=== PATIENT | female | born 1985 | race Caucasian/White ===

== ENCOUNTER 2017-08-13 19:42 | Emergency (ER) | payer MEDICAID ==
[2017-08-13 20:31] VITALS: TEMP 98.9
--- NOTE | 2017-08-13 22:59 | ED ---
General Adult HPI - General Chief complaint: Extremity Injury, Lower Stated complaint: calf pain Time Seen by Provider: 08/13/17 22:14 Source: patient, RN notes reviewed Mode of arrival: ambulatory Limitations: no limitations - History of Present Illness Initial comments: 32-year-old female to the emergency department for a chief complaint of left calf pain times one week. Patient states she woke up with what felt like a charley horse. Patient states it continued for the remainder of the week. However today she was walking on the stairs and felt a pop in the back of her leg. Patient states she believes it is a "charley horse" but is unsure if it could be something else like a blood clot. Patient states she is worried about a blood count because she is a smoker on control. Patient denies shortness of breath or chest pain. Patient denies pain behind the knee. Patient denies any pain in the foot ankle or zamudio. Patient has not tried Motrin for pain or heating the affected area. Patient states going up on her toes makes it hurt worse. Patient has no other complaints at this time including abdominal pain, nausea or vomiting, headache, or visual changes. - Related Data Home Medications Medication Instructions Recorded Confirmed Pnv,Calcium 72/Iron/Folic Acid 02/03/15 02/03/15 [ Plus Tablet] Previous Rx's Medication Instructions Recorded Acetaminophen-Codeine 300-30mg 2 each PO Q4HR PRN #30 tab 02/05/15 [Tylenol w/codeine #3] Ibuprofen [Motrin] 600 mg PO Q6HR PRN #30 tab 02/05/15 Allergies Allergy/AdvReac Type Severity Reaction Status Date / Time No Known Allergies Allergy Verified 08/13/17 20:31 Review of Systems ROS Statement: Those systems with pertinent positive or pertinent negative responses have been documented in the HPI. ROS Other: All systems not noted in ROS Statement are negative. Past Medical History Past Medical History: No Reported History Additional Past Medical History / Comment(s): OB history: First was a spontaneous . This is her second and she has had care with me since 11 weeks. B+, abs neg, Rub Imm, RPR NR, Hep B neg, normal anatomy US and normal 1hr GTT. GBS neg. History of Any Multi-Drug Resistant Organisms: None Reported Past Surgical History: Adenoidectomy Additional Past Surgical History / Comment(s): Myringotomy with tube placement Past Anesthesia/Blood Transfusion Reactions: No Reported Reaction Past Psychological History: No Psychological Hx Reported Smoking Status: Current every day smoker Past Alcohol Use History: None Reported Past Drug Use History: None Reported - Past Family History Mother Family Medical History: Asthma General Exam Limitations: no limitations General appearance: alert, in no apparent distress Respiratory exam: Present: normal lung sounds bilaterally. Absent: respiratory distress, wheezes, rales, rhonchi, stridor Cardiovascular Exam: Present: regular rate, normal rhythm, normal heart sounds. Absent: systolic murmur, diastolic murmur, rubs, gallop, clicks Extremities exam: Present: full ROM (Full range of motion of the left knee and left ankle and foot. Patient has pain with lifting her heel off the ground on the left lower extremity.), tenderness (Tenderness to the gastrocnemius area of the left lower extremity.), normal capillary refill (Cap refill less than 2 seconds and pedal pulse 2+ in the left lower extremity), calf tenderness (No swelling, redness, increased warmth in the left lower external he.), other ( Sensation intact in the left lower extremity.). Absent: joint swelling (No swelling of the left ankle or left knee.) Course Vital Signs 08/13/17 20:27 Temperature 98.9 F Pulse Rate 79 Respiratory 16 Rate Blood Pressure 110/74 O2 Sat by Pulse 99 Oximetry Medical Decision Making - Medical Decision Making 32-year-old female presents to the emergency department for a chief complaint of left lower extremities pain times one week. Patient states she woke up with the pain about a week ago and it worsened today when she stepped and felt a snap in the back of her calf. Patient believes this is a "charley horse." however, she is concerned for blood clots as she is a smoker and takes control. Patient denies shortness of breath or chest pain. On exam patient has some tenderness to the left posterior calf. There is no swelling, redness, or increased warmth of the left calf. Patient has full range motion of the left knee and ankle. Patient has difficulty lifting her left heel off the ground due to pain. Ultrasound of the left lower extremity was ordered which was negative for DVT. Patient likely is experiencing a muscle spasm. Patient was educated to use heat on the muscle to relax it. She was educated to take Motrin or Tylenol for pain and to gently stretch the calf. Patient denies any chance of . She is to follow-up with her primary care provider in one to 2 days. She is to return to the emergency Department if she has any worsening symptoms. Disposition Clinical Impression: Muscle spasm of left calf Disposition: HOME SELF-CARE Condition: Good Instructions: Muscle Spasm (ED) Additional Instructions: Please take Motrin or Tylenol for pain relief. Please apply heat to the area as well as gently stretch the calf. Return to the emergency department if you have any worsening symptoms. Otherwise follow-up with primary care in 1-2 days. Is patient prescribed a controlled substance at d/c from ED?: No Referrals: Qasim Philippe DO [Primary Care Provider] - 1-2 days Time of Disposition: 22:58
--- NOTE | 2017-08-13 23:17 | US ---
EXAMINATION TYPE: US venous doppler duplex LE LT DATE OF EXAM: 08/13/2017 10:44 PM COMPARISON: NONE CLINICAL HISTORY: Pain. Left calf cramping SIDE PERFORMED: Left TECHNIQUE: The lower extremity deep venous system is examined utilizing real time linear array sonog efraín with graded compression, doppler sonography and color-flow sonography. VESSELS IMAGED: External Iliac Vein (EIV) Common Femoral Vein Deep Femoral Vein Greater Saphenous Vein * Femoral Vein Popliteal Vein Small Saphenous Vein * Proximal Calf Veins (* superficial vessels) Left Leg: Appears negative for DVT IMPRESSION: Negative exam. No evidence of deep venous thrombosis in the left leg.
[2017-08-13 23:28] VITALS: BP 123/66; PULSE 86; RESP 18
== END 2017-08-13 23:28 | disposition home or self-care (01) ==
LOC: EC 19:42
DX: M62.838 Other muscle spasm (principal); F17.200 Nicotine dependence, unspecified, uncomplicated; Z79.3 Long term (current) use of hormonal contraceptives
CPT/HCPCS: 99283

== ENCOUNTER 2018-02-08 06:56 | Emergency (ER) | payer MEDICAID ==
[2018-02-08 07:54] LABS: Basophils % (A) 0 %; Eosinophils # (A) 0.3 k/uL (0-0.7); Eosinophils % (A) 5 %; HCT 44.8 % (34.0-46.0); HGB 14.8 gm/dL (11.4-16.0); Lymphocytes # (A) 1.5 k/uL (1.0-4.8); Lymphocytes % (A) 21 %; MCH 27.7 pg (25.0-35.0); MCV 83.9 fL (80.0-100.0); Mean Platelet Volume 7.6; Monocytes # (A) 0.4 k/uL (0-1.0); Monocytes % (A) 6 %; Neutrophils # (A) 4.7 k/uL (1.3-7.7); Neutrophils % (A) 67 %; Platelet Count 241 k/uL (150-450); RBC 5.34 m/uL (3.80-5.40); RDW 13.5 % (11.5-15.5)
[2018-02-08 08:01] LABS: ALT 21 U/L (9-52); AST 18 U/L (14-36); Albumin 4.4 g/dL (3.5-5.0); Alkaline Phosphatase 46 U/L (38-126); Anion Gap 9 mmol/L; Blood Urea Nitrogen 13 mg/dL (7-17); Calcium 9.8 mg/dL (8.4-10.2); Carbon Dioxide 20 mmol/L (22-30); Chloride 111 mmol/L (98-107); Glucose 90 mg/dL (74-99); Potassium 4.3 mmol/L (3.5-5.1); Sodium 140 mmol/L (137-145); Total Bilirubin 0.5 mg/dL (0.2-1.3); Total Protein 7.9 g/dL (6.3-8.2)
--- NOTE | 2018-02-08 08:01 | XR ---
EXAMINATION TYPE: XR chest 2V DATE OF EXAM: 02/08/2018 COMPARISON: NONE HISTORY: Chest pain TECHNIQUE: Frontal and lateral views of the chest are obtained. FINDINGS: There is no focal air space opacity. No evidence for pneumothorax. No pleural effusion. The cardiac silhouette size is within normal limits. The osseous structures are grossly intact. IMPRESSION: 1. No acute cardiopulmonary process.
[2018-02-08 08:04] LABS: Partial Thromboplastin Time 23.8 sec (22.0-30.0); Prothrombin Time 9.8 sec (9.0-12.0)
--- NOTE | 2018-02-08 08:09 | ED ---
SOB HPI - General Chief Complaint: Shortness of Breath Stated Complaint: high heart rate and blood pressure Time Seen by Provider: 02/08/18 07:30 Source: patient, RN notes reviewed Mode of arrival: ambulatory Limitations: no limitations - History of Present Illness Initial Comments: This is a 32-year-old female with what she believes to be a history of hypothyroidism when she was 17 years old who states she had the onset this morning of elevated heart rate. He states the heart rate without between 1949 the blood pressure 129/58. She has some shortness of breath and palpitations. It started about 5:00 last until around 7 AM. No chest pain with it no fevers chills nausea vomiting sweats she states she feels back to normal at this time she's never had this happen before she denies any other symptoms or recent illnesses. Her last menstrual period was January 17 through January 24 she does not believe she is . There is a family history of cardiac disease with no personal history MD Complaint: shortness of breath - Related Data Home Medications Medication Instructions Recorded Confirmed Aspirin/Acetaminophen/Caffeine 2 tab PO DAILY PRN 02/08/18 02/08/18 [Excedrin Migraine Caplet] Confianza 1 tab PO DAILY 02/08/18 02/08/18 Etonogestrel/Ethinyl Estradiol 1 ring VAGINAL Q28D 02/08/18 02/08/18 [Nuvaring Vaginal Ring] Allergies Allergy/AdvReac Type Severity Reaction Status Date / Time No Known Allergies Allergy Verified 02/08/18 08:22 Review of Systems ROS Statement: Those systems with pertinent positive or pertinent negative responses have been documented in the HPI. ROS Other: All systems not noted in ROS Statement are negative. Past Medical History Past Medical History: No Reported History Additional Past Medical History / Comment(s): OB history: First was a spontaneous . This is her second and she has had care with me since 11 weeks. B+, abs neg, Rub Imm, RPR NR, Hep B neg, normal anatomy US and normal 1hr GTT. GBS neg. History of Any Multi-Drug Resistant Organisms: None Reported Past Surgical History: Adenoidectomy, Section Additional Past Surgical History / Comment(s): Myringotomy with tube placement, c-sect, ear tubes- now removed Past Anesthesia/Blood Transfusion Reactions: No Reported Reaction Past Psychological History: No Psychological Hx Reported Smoking Status: Current every day smoker Past Alcohol Use History: Rare Past Drug Use History: Marijuana - Past Family History Mother Family Medical History: Asthma General Exam - General Exam Comments Initial Comments: This is a well-developed well-nourished awake alert oriented 3 female Limitations: no limitations General appearance: alert, in no apparent distress Head exam: Present: atraumatic, normocephalic, normal inspection Eye exam: Present: normal appearance, PERRL, EOMI. Absent: scleral icterus, conjunctival injection, periorbital swelling ENT exam: Present: normal exam, mucous membranes moist Neck exam: Present: normal inspection, full ROM, other (No stridor JVD or bruits ). Absent: tenderness, meningismus, lymphadenopathy, thyromegaly Respiratory exam: Present: normal lung sounds bilaterally. Absent: respiratory distress, wheezes, rales, rhonchi, stridor Cardiovascular Exam: Present: regular rate, normal rhythm, normal heart sounds. Absent: systolic murmur, diastolic murmur, rubs, gallop, clicks GI/Abdominal exam: Present: soft, normal bowel sounds. Absent: distended, tenderness, guarding, rebound, rigid Extremities exam: Present: normal inspection, full ROM, normal capillary refill. Absent: tenderness, pedal edema, joint swelling, calf tenderness Back exam: Present: normal inspection Neurological exam: Present: alert, oriented X3, CN II-XII intact Psychiatric exam: Present: normal affect, normal mood Skin exam: Present: warm, dry, intact, normal color. Absent: rash Course Vital Signs 02/08/18 02/08/18 02/08/18 06:58 07:44 08:02 Temperature 98.0 F Pulse Rate 94 85 Respiratory 16 Rate Blood Pressure 113/78 96/56 O2 Sat by Pulse 100 2 L 98 Oximetry Medical Decision Making - Medical Decision Making Patient is feeling much improved she will be discharged she is follow-up with her doctor I did recommend a Holter monitor. - Lab Data Result diagrams: 02/08/18 07:40 02/08/18 07:40 Lab Results 02/08/18 02/08/18 02/08/18 Range/Units 07:40 07:40 07:40 WBC 7.0 (3.8-10.6) k/uL RBC 5.34 (3.80-5.40) m/uL Hgb 14.8 (11.4-16.0) gm/dL Hct 44.8 (34.0-46.0) % MCV 83.9 (80.0-100.0) fL MCH 27.7 (25.0-35.0) pg MCHC 33.0 (31.0-37.0) g/dL RDW 13.5 (11.5-15.5) % Plt Count 241 (150-450) k/uL Neutrophils % 67 % Lymphocytes % 21 % Monocytes % 6 % Eosinophils % 5 % Basophils % 0 % Neutrophils # 4.7 (1.3-7.7) k/uL Lymphocytes # 1.5 (1.0-4.8) k/uL Monocytes # 0.4 (0-1.0) k/uL Eosinophils # 0.3 (0-0.7) k/uL Basophils # 0.0 (0-0.2) k/uL PT (9.0-12.0) sec INR (<1.2) APTT (22.0-30.0) sec D-Dimer (<0.60) mg/L FEU Sodium 140 (137-145) mmol/L Potassium 4.3 (3.5-5.1) mmol/L Chloride 111 H (98-107) mmol/L Carbon Dioxide 20 L (22-30) mmol/L Anion Gap 9 mmol/L BUN 13 (7-17) mg/dL Creatinine 0.75 (0.52-1.04) mg/dL Est GFR (CKD-EPI)AfAm >90 (>60 ml/min/1.73 sqM) Est GFR (CKD-EPI)NonAf >90 (>60 ml/min/1.73 sqM) Glucose 90 (74-99) mg/dL Calcium 9.8 (8.4-10.2) mg/dL Magnesium (1.6-2.3) mg/dL Total Bilirubin 0.5 (0.2-1.3) mg/dL AST 18 (14-36) U/L ALT 21 (9-52) U/L Alkaline Phosphatase 46 (38-126) U/L Total Creatine Kinase 77 (30-135) U/L CK-MB (CK-2) 0.7 (0.0-2.4) ng/mL CK-MB (CK-2) Rel Index 0.9 Troponin I 0.030 (0.000-0.034) ng/mL Total Protein 7.9 (6.3-8.2) g/dL Albumin 4.4 (3.5-5.0) g/dL TSH (0.465-4.680) mIU/L 02/08/18 02/08/18 02/08/18 Range/Units 07:40 07:40 07:40 WBC (3.8-10.6) k/uL RBC (3.80-5.40) m/uL Hgb (11.4-16.0) gm/dL Hct (34.0-46.0) % MCV (80.0-100.0) fL MCH (25.0-35.0) pg MCHC (31.0-37.0) g/dL RDW (11.5-15.5) % Plt Count (150-450) k/uL Neutrophils % % Lymphocytes % % Monocytes % % Eosinophils % % Basophils % % Neutrophils # (1.3-7.7) k/uL Lymphocytes # (1.0-4.8) k/uL Monocytes # (0-1.0) k/uL Eosinophils # (0-0.7) k/uL Basophils # (0-0.2) k/uL PT 9.8 (9.0-12.0) sec INR 1.0 (<1.2) APTT 23.8 (22.0-30.0) sec D-Dimer 0.18 (<0.60) mg/L FEU Sodium (137-145) mmol/L Potassium (3.5-5.1) mmol/L Chloride (98-107) mmol/L Carbon Dioxide (22-30) mmol/L Anion Gap mmol/L BUN (7-17) mg/dL Creatinine (0.52-1.04) mg/dL Est GFR (CKD-EPI)AfAm (>60 ml/min/1.73 sqM) Est GFR (CKD-EPI)NonAf (>60 ml/min/1.73 sqM) Glucose (74-99) mg/dL Calcium (8.4-10.2) mg/dL Magnesium 2.2 (1.6-2.3) mg/dL Total Bilirubin (0.2-1.3) mg/dL AST (14-36) U/L ALT (9-52) U/L Alkaline Phosphatase (38-126) U/L Total Creatine Kinase (30-135) U/L CK-MB (CK-2) (0.0-2.4) ng/mL CK-MB (CK-2) Rel Index Troponin I (0.000-0.034) ng/mL Total Protein (6.3-8.2) g/dL Albumin (3.5-5.0) g/dL TSH 3.900 (0.465-4.680) mIU/L - Radiology Data Radiology results: report reviewed, image reviewed Disposition Clinical Impression: Palpitations, Tachycardia Disposition: HOME SELF-CARE Condition: Good Instructions: Heart Palpitations (DC), Tachycardia (ED) Is patient prescribed a controlled substance at d/c from ED?: No Referrals: Qasim Philippe DO [Primary Care Provider] - 1-2 days
[2018-02-08 08:26] LABS: Creatine Kinase MB 0.7 ng/mL (0.0-2.4); Troponin I 0.03 ng/mL (0.000-0.034)
[2018-02-08 08:27] LABS: Magnesium 2.2 mg/dL (1.6-2.3)
[2018-02-08] MEDS ORDERED: SODIUM CHLORIDE 0.9% 1,000 ML IV ONE (10:25)
[2018-02-08 12:41] VITALS: BP 111/61; PULSE 96; RESP 18; TEMP 98
== END 2018-02-08 12:40 | disposition home or self-care (01) ==
LOC: EC 06:56
DX: R00.2 Palpitations (principal); R00.0 Tachycardia, unspecified; R06.02 Shortness of breath; F17.200 Nicotine dependence, unspecified, uncomplicated; Z79.3 Long term (current) use of hormonal contraceptives; Z79.899 Other long term (current) drug therapy; Z82.49 Family history of ischemic heart disease and other diseases of the circulatory system
CPT/HCPCS: 36415; 71046; 80053; 82550; 82553; 83735; 84443; 84484; 85025; 85379; 85610; 85730; 93005; 96360; 99285

== ENCOUNTER → 2019-10-09 | Outpatient (CLI) | payer MEDICAID ==
--- NOTE | 2019-10-09 15:18 | US ---
EXAMINATION TYPE: US mass soft tissue chest/back DATE OF EXAM: 10/09/2019 COMPARISON: NONE CLINICAL HISTORY: R22.22 localized swelling/mass on trunk. Lump on left upper back. Isoechoic area seen .4 x .3 x .3 cm., Peripheral echogenic rim is noted Scanning performed in the site of patient's clinical abnormality. IMPRESSION: Small focus shows a nonaggressive appearance and is of questionable clinical significanc e. Follow-up as indicated, consider clinical management
== END | disposition home or self-care (01) ==
LOC: RADUSWWP 14:50
PROVIDERS: ATTEND Physician Assistant
DX: R22.2 Localized swelling, mass and lump, trunk (principal)

== ENCOUNTER 2019-12-15 06:31 | Day surgery (SDC) | payer MEDICAID ==
[2019-12-12 08:43] VITALS: BMI 29.2
[~2019-12-15 06:31] MED LIST: ACETAMINOPHEN TAB 500 MG TAB PO ONE; HEPARIN SODIUM,PORCINE 5,000 UNIT/ML 1 ML VIAL SQ ONE; LACTATED RINGERS 1,000 ML IV SCH; Pre Op ABX Message 1 EACH MISC MISCELLANE ONE
[2019-12-15 07:09] VITALS: RESP 16
[2019-12-15] MEDS ORDERED: ONDANSETRON 4 MG/2 ML VIAL ONE (07:29)
[2019-12-15] MEDS ORDERED: DEXAMETHASONE SOD PHOSPHATE 10 MG/ML 1 ML VIAL IV ONE (07:33)
[2019-12-15] MEDS ORDERED: ONDANSETRON 4 MG/2 ML VIAL IVP ONE (07:33)
[2019-12-15] MEDS ORDERED: SCOPOLAMINE 1.5MG/72HR PATCH TRANSDERM ONE (07:34)
[2019-12-15] MEDS ORDERED: fentaNYL (PF) 50 MCG/ML 2 ML AMP ONE (07:42)
[2019-12-15] MEDS ORDERED: PROPOFOL 10 MG/ML 20 ML VIAL IV ONE (07:42)
[2019-12-15] MEDS ORDERED: LIDOCAINE 1% INJ 10MG/ML (20 ML MDV) ONE (07:42)
[2019-12-15] MEDS ORDERED: SUCCINYLCHOLINE CHLORIDE 100 MG/5 ML SYR IV ONE (07:42)
[2019-12-15] MEDS ORDERED: MIDAZOLAM 2 MG/2 ML VIAL ONE (07:42)
[2019-12-15] MEDS ORDERED: BUPIVACAINE (PF) 0.25% 30 ML VIAL SQ ONE ×2 (08:10)
[2019-12-15] MEDS ORDERED: HYDROcodone/APAP 5-325MG 1 EACH TAB PO PRN (08:24)
[2019-12-15] MEDS ORDERED: NALOXONE 0.4 MG/ML 1 ML VIAL IV PRN (08:24)
--- NOTE | 2019-12-15 08:28 | P.OP ---
Date of Procedure: 12/15/19 Procedure(s) Performed: PREOPERATIVE DIAGNOSIS: Left upper back lipoma POSTOPERATIVE DIAGNOSIS: Same PROCEDURE: Lesion left upper back lipoma with intermediate closure SURGEON: Constantin EBL: 5 mL ANESTHESIA: Minimal COMPLICATIONS: None OPERATIVE PROCEDURE: Patient was brought and placed on the operating room table in the supine position. Patient was then placed under general anesthesia and placed in the right decubitus position. The left upper back was prepped and draped sterile. A horizontal incision was made overlying the palpable mass. The skin and subcutaneous tissues were then divided using the scalpel and electrocautery. The patient's lipomatous mass was easily identified. This measured 8 x 6 cm and was fully excised using both blunt dissection and cautery. No bleeding was seen. The subcutaneous tissues were closed using 3-0 Vicryl sutures. The skin was closed using running 4-0 Monocryl sutures. Skin glue and sterile dressings then applied. Length of closure 6 cm. DISPOSITION: Stable to recovery room
[2019-12-15 08:31] VITALS: TEMP 98.1
[2019-12-15 09:20] VITALS: BP 99/65; PULSE 75
== END 2019-12-15 09:37 | disposition home or self-care (01) ==
LOC: OR 06:31
PROVIDERS: ATTEND Surgery
DX: D17.1 Benign lipomatous neoplasm of skin and subcutaneous tissue of trunk (principal); F17.210 Nicotine dependence, cigarettes, uncomplicated; Z79.899 Other long term (current) drug therapy; Z98.891 History of uterine scar from previous surgery; Z90.89 Acquired absence of other organs; Z98.51 Tubal ligation status; Z83.3 Family history of diabetes mellitus; Z82.49 Family history of ischemic heart disease and other diseases of the circulatory system; Z82.5 Family history of asthma and other chronic lower respiratory diseases
CPT/HCPCS: 81025; 88304; 21931; J2250; J1644; J1100; J2405; J2001; J3010; J0330; J2704

== ENCOUNTER 2024-03-30 07:56 | Emergency (ER) | payer BC, MEDICAID ==
--- NOTE | 2024-03-30 08:24 | ED ---
Female Urogenital HPI - General Chief complaint: Urogenital Stated complaint: UROGENITAL/KIDNEY Time Seen by Provider: 03/30/24 08:10 Source: patient, RN notes reviewed Mode of arrival: ambulatory Limitations: no limitations - History of Present Illness Initial comments: Patient is a 38 year old female with a past medical history of grade 1 bladder prolapse presenting with painful urination x 2 days. She states because of her prolapse she usually has painful urination, but it has progressed and is now a 8-9/10. She notes that her pain is in the lower abdomen and radiates to her back bilaterally, but more intense on the left. She describes her pain as "dull stabbing pain". She states that nothing relieves the pain and she has trouble sitting or leaning back due to the pain. She denies previous kidney stones, kidney infection, fever, chest pain, SOB. She states she has had a UTI before but this does not feel the same. She states that she recently had Nexplanon implanted in October and has yet to have a period, so she is unsure if the blood in her urine is menstrual or not. - Related Data Home Medications Medication Instructions Recorded Confirmed Aspirin/Acetaminophen/Caffeine 2 tab PO DAILY PRN 02/08/18 12/12/19 [Excedrin Migraine Caplet] Etonogestrel/Ethinyl Estradiol 1 ring VAGINAL Q28D 02/08/18 12/12/19 [Nuvaring Vaginal Ring] Cyclobenzaprine [Flexeril] 10 mg PO TID PRN 12/12/19 12/12/19 Loratadine-Pseudoeph 10-240 mg 1 tab PO DAILY PRN 12/12/19 12/12/19 [Claritin-D 24 Hour] Montelukast [Singulair] 10 mg PO DAILY 12/12/19 12/12/19 Previous Rx's Medication Instructions Recorded oxyCODONE HCL [OxyIR] 5 mg PO Q6H PRN 3 Days #6 tab 12/15/19 Ketorolac [Toradol] 10 mg PO Q8HR #15 tab 03/30/24 Ondansetron Odt [Zofran Odt] 4 mg PO Q8HR PRN #10 tab 03/30/24 Allergies Allergy/AdvReac Type Severity Reaction Status Date / Time No Known Allergies Allergy Verified 03/30/24 08:03 Review of Systems ROS Statement: Those systems with pertinent positive or pertinent negative responses have been documented in the HPI. ROS Other: All systems not noted in ROS Statement are negative. Past Medical History Past Medical History: No Reported History Additional Past Medical History / Comment(s): MIGRAINES, THYROID PROBLEMS A TEEN, grade 1 prolapse History of Any Multi-Drug Resistant Organisms: None Reported Past Surgical History: Adenoidectomy, Section Additional Past Surgical History / Comment(s): Myringotomy with tube placement, c-sect, Past Anesthesia/Blood Transfusion Reactions: Postoperative Nausea & Vomiting (PONV) Past Psychological History: Depression Smoking Status: Current every day smoker, Vaper Past Drug Use History: Marijuana - Past Family History Mother Family Medical History: Asthma General Exam Limitations: no limitations General appearance: alert, in no apparent distress, anxious Head exam: Present: atraumatic, normocephalic, normal inspection Eye exam: Present: normal appearance, PERRL, EOMI. Absent: scleral icterus, conjunctival injection, periorbital swelling ENT exam: Present: normal exam, mucous membranes moist Neck exam: Present: normal inspection. Absent: tenderness, meningismus, lymphadenopathy Respiratory exam: Present: normal lung sounds bilaterally. Absent: respiratory distress, wheezes, rales, rhonchi, stridor Cardiovascular Exam: Present: regular rate, normal rhythm, normal heart sounds. Absent: systolic murmur, diastolic murmur, rubs, gallop, clicks GI/Abdominal exam: Present: tenderness. Absent: soft, distended, guarding, rebound, rigid Back exam: Present: normal inspection, tenderness, CVA tenderness (L). Absent: CVA tenderness (R) Neurological exam: Present: alert, oriented X3, CN II-XII intact Psychiatric exam: Present: normal affect, normal mood, anxious Skin exam: Present: warm, dry, intact, normal color. Absent: rash Course Vital Signs 03/30/24 03/30/24 08:00 09:49 Temperature 98 F 98.4 F Pulse Rate 64 65 Respiratory 16 18 Rate Blood Pressure 124/91 O2 Sat by Pulse 100 100 Oximetry Medical Decision Making - Medical Decision Making Was pt. sent in by a medical professional or institution (, PA, LOW PRESSURE BOILER TENDER, urgent care, hospital, or senior living...) When possible be specific @ -No Did you speak to anyone other than the patient for history (EMS, parent, family, police, friend...)? What history was obtained from this source @ -No Did you review nursing and triage notes (agree or disagree)? Why? @ -I reviewed and agree with nursing and triage notes Were old charts reviewed (outside hosp., previous admission, EMS record, old EKG, old radiological studies, urgent care reports/EKG's, senior living records)? Report findings @ -No old charts were reviewed Differential Diagnosis (chest pain, altered mental status, abdominal pain women, abdominal pain men, vaginal bleeding, weakness, fever, dyspnea, syncope, headache, dizziness, GI bleed, back pain, seizure, CVA, palpatations, mental health, musculoskeletal)? @ -Differential Abdominal Pain Women: Appendicitis, Cholecystitis, diverticulosis, ischemic bowel, pancreatitis, hepatitis, UTI, gastroenteritis, AAA, incarcerated hernia, bowel obstruction, constipation, inflammatory bowel, hepatitis, peptic ulcer disease, splenic infarction, perforated viscus, vulvitis, ovarian torsion, PID, kidney stone, placenta abruption, this is not meant to be an all-inclusive list EKG interpreted by me (3pts min.). @ -None X-rays interpreted by me (1pt min.). @ -None done CT interpreted by me (1pt min.). @ -CT abdomen pelvis showing no evidence of left 4 mm UVJ stone U/S interpreted by me (1pt. min.). @ -None done What testing was considered but not performed or refused? (CT, X-rays, U/S, labs)? Why? @ -None What meds were considered but not given or refused? Why? @ -None Did you discuss the management of the patient with other professionals (professionals i.e. , PA, LOW PRESSURE BOILER TENDER, lab, RT, psych nurse, social worker psychiatric, viscose cellar charge hand, teacher, network security officer, spring encaser)? Give summary @ -No Was smoking cessation discussed for >3mins.? @ -No Was critical care preformed (if so, how long)? @ -No Were there social determinants of health that impacted care today? How? (Homelessness, low income, unemployed, alcoholism, drug addiction, transportation, low edu. Level, literacy, decrease access to med. care, long-term, rehab)? @ -No Was there de-escalation of care discussed even if they declined (Discuss DNR or withdrawal of care, Hospice)? DNR status @ -No What co-morbidities impacted this encounter? (DM, HTN, Smoking, COPD, CAD, Cancer, CVA, ARF, Chemo, Hep., AIDS, mental health diagnosis, sleep apnea, morbid obesity)? @ -None Was patient admitted / discharged? Hospital course, mention meds given and route, prescriptions, significant lab abnormalities, going to OR and other pertinent info. @ -Discharge patient presented for urinary symptoms initially urinalysis was ordered for UTI, patient had hematuria CT was obtained showing evidence of 4 mm UVJ stone patient's pain is controlled patient discharged in stable condition. Undiagnosed new problem with uncertain prognosis? @ -No Drug Therapy requiring intensive monitoring for toxicity (Heparin, Nitro, Insulin, Cardizem)? @ -No Were any procedures done? @ -No Diagnosis/symptom? @ -Left ureteral calculus Acute, or Chronic, or Acute on Chronic? @ -Acute Uncomplicated (without systemic symptoms) or Complicated (systemic symptoms)? @ -Complicated Side effects of treatment? @ -No Exacerbation, Progression, or Severe Exacerbation? @ -No Poses a threat to life or bodily function? How? (Chest pain, [place], [place], pneumonia, PE, COPD, DKA, ARF, appy, cholecystitis, CVA, Diverticulitis, Homicidal, [place] cidal, threat to staff... and all critical care pts) @ -No - Lab Data Lab Results 03/30/24 03/30/24 Range/Units 08:29 08:29 Urine Color Yellow Urine Appearance Clear (Clear) Urine pH 6.0 (5.0-8.0) Ur Specific [place] 1.018 (1.001-1.035) Urine Protein Trace H (Negative) Urine Glucose (UA) Negative (Negative) Urine Ketones 1+ H (Negative) Urine Blood Large H (Negative) Urine Nitrite Negative (Negative) Urine Bilirubin Negative (Negative) Urine Urobilinogen <2.0 (<2.0) mg/dL Ur Leukocyte Esterase Trace H (Negative) Urine RBC 85 H (0-5) /hpf Urine WBC 5 (0-5) /hpf Ur Squamous Epith Cells 1 (0-4) /hpf Urine Bacteria Rare H (None) /hpf Urine Mucus Few H (None) /hpf Urine HCG, Qual Not Detected (Not Detectd) Disposition Clinical Impression: Left ureteral calculus Disposition: HOME SELF-CARE Condition: Stable Instructions (If sedation given, give patient instructions): Kidney Stones (ED) Additional Instructions: Please return to the Emergency Department if symptoms worsen or any other concerns. Prescriptions: Ketorolac [Toradol] 10 mg PO Q8HR #15 tab Ondansetron Odt [Zofran Odt] 4 mg PO Q8HR PRN #10 tab PRN Reason: Nausea Is patient prescribed a controlled substance at d/c from ED?: No Referrals: Qasim Philippe DO [Primary Care Provider] - 1-2 days Time of Disposition: 09:39
[2024-03-30 08:38] LABS: Appearance,Urine Clear (Clear); Bacteria,Urine Rare /hpf; Bilirubin,Urine Negative (Negative); Blood,Urine Large (Negative); Color,Urine Yellow; Glucose,Urine (UA) Negative (Negative); Ketones,Urine 1+ (Negative); Leukocyte Esterase,Urine Trace (Negative); Mucus,Urine Few /hpf; Nitrite,Urine Negative (Negative); Protein,Urine Trace (Negative); RBC,Urine 85 /hpf (0-5); Specific Gravity,Urine 1.018 (1.001-1.035); Squamous Epithelial Cell,Urine 1 /hpf (0-4); Urobilinogen,Urine <2.0 mg/dL (<2.0); WBC,Urine 5 /hpf (0-5)
[2024-03-30] MEDS: KETOROLAC 15 MG/ML 1 ML VIAL IVP STA (09:25)
--- NOTE | 2024-03-30 09:32 | CT ---
EXAMINATION TYPE: CT abdomen pelvis wo con DATE OF EXAM: 03/30/2024 HISTORY: left flank pain CT DLP: 504.4 mGycm. Automated Exposure Control for Dose Reduction was Utilized. TECHNIQUE: CT scan of the abdomen and pelvis is performed without oral or IV contrast. COMPARISON: NONE FINDINGS: Within the limitations of a non-contrast study, the following observations are made. LUNG BASES: No significant abnormality is appreciated. LIVER/GB: No significant abnormality is appreciated. PANCREAS: No significant abnormality is seen. SPLEEN: No significant abnormality is seen. ADRENALS: Tiny calcified adrenal glands bilaterally suggests remote trauma or injury. KIDNEYS: No right-sided renal calculi or hydronephrosis. There are 2 punctate 1 to 2 mm calculi scatt ered throughout the left kidney. There is a 4 mm calculus at left UVJ axial image 118 causing mild le ft-sided hydronephrosis. BOWEL: No significant abnormality is seen. GENITAL ORGANS: No gross abnormality seen. LYMPH NODES: No greater than 1cm abdominal or pelvic lymph nodes are appreciated. OSSEOUS STRUCTURES: Vacuum disc phenomenon with moderate disc space narrowing at L5-S1 level. Posteri or spur disc complex at this level noted. Some mild facet arthropathy in the lower lumbar spine is se en. OTHER: Tiny fat-containing umbilical hernia sagittal image 69. IMPRESSION: There is a 4 mm calculus at left UVJ causing mild left-sided hydronephrosis. [facility], , 03/30/2024 9:30 AM
[2024-03-30 09:50] VITALS: RESP 18
[2024-03-30] MEDS: ACET/COD 300 MG/30 MG STARTER PACK 6 TAB BTL PO STA (10:02)
[2024-03-30] MEDS: ONDANSETRON 4 MG ODT STARTER PACK 2 TAB BTL PO STA (10:02)
[2024-03-30] MEDS: ONDANSETRON 4 MG/2 ML VIAL IVP STA (10:03)
[2024-03-30] MEDS: HYDROmorphone 0.5 MG/0.5 ML SYRINGE IVP STA (10:03)
[2024-03-30 10:10] VITALS: BP 136/89; PULSE 62; TEMP 98
== END 2024-03-30 10:10 | disposition home or self-care (01) ==
LOC: EC 07:56
DX: N13.2 Hydronephrosis with renal and ureteral calculous obstruction (principal); F17.290 Nicotine dependence, other tobacco product, uncomplicated
CPT/HCPCS: 81001; 81025; 74176; 99284; 96374; 96375; J2405; J1885; S0119; J1171